=== PATIENT | male | born 1945 | race Caucasian/White ===

== ENCOUNTER 2017-11-06 09:26 | Emergency (ER) | payer OTHER ==
[~2017-11-06] VITALS: Ht 182.9 cm; Wt 104.3 kg
--- NOTE | 2017-11-06 10:17 | PHYS DOC ---
Past Medical History Past Medical History: High Cholesterol, Hypertension Past Surgical History: Other Additional Past Surgical Histo: HERNIA Additional Information: SMOKES 1 PACK CIGARS DAILY Alcohol Use: None Drug Use: None Adult General Chief Complaint Chief Complaint: SHORTNESS OF BREATH [facility] HPI Patient is a 72 year old male who presents with upper airway congestion. The patient reports she has been ill over the last week. He has sinus and nasal congestion and drainage that is running down the back of his throat. He describes that the symptom is so severe that it keeps him awake at night. His cough has been productive. He was evaluated at an urgent care several days earlier. He was placed on antibiotics but states he did not have any relief from his symptoms. Had chest pain or palpitations. The patient does use tobacco. He does not complain of shortness of breath. dyspnea. Review of Systems Review of Systems Constitutional: Denies fever or chills Eyes: Denies change in visual acuity, redness, or eye pain HENT: Denies sore throat Respiratory: Denies dyspnea Cardiovascular: No additional information not addressed in HPI GI: Denies abdominal pain : Denies dysuria Musculoskeletal: Denies back pain or joint pain Integument: Denies rash or skin lesions [] Neurologic: Denies headache, focal weakness or sensory changes [] Endocrine: Denies polyuria or polydipsia [] All other systems were reviewed and found to be within normal limits, except as documented in this note. Allergies Allergies Allergies Coded Allergies Type Severity Reaction Last Updated Verified No Known Drug Allergies 11/06/17 No Physical Exam Physical Exam Constitutional: Well developed, well nourished, no acute distress, non-toxic appearance. [] HENT: Normocephalic, atraumatic, bilateral external ears normal, oropharynx moist, no oral exudates, nose normal. [] Eyes: PERRLA, EOMI, conjunctiva normal, no discharge. [] Neck: Normal range of motion, no tenderness, supple, no stridor. [] Cardiovascular:Heart rate regular rhythm, no murmur [] Lungs & Thorax: Bilateral breath sounds clear to auscultation [] Abdomen: Bowel sounds normal, soft, no tenderness, no masses, no pulsatile masses. [] Skin: Warm, dry, no erythema, no rash. [] Back: No tenderness, no CVA tenderness. [] Extremities: No tenderness, no cyanosis, no clubbing, ROM intact, no edema. [] Neurologic: Alert and oriented X 3, normal motor function, normal sensory function, no focal deficits noted. [] Psychologic: Affect normal, judgement normal, mood normal. [] Current Patient Data Vital Signs Vital Signs Date Time Temp Pulse Resp B/P (MAP) Pulse Ox O2 Delivery O2 Flow Rate FiO2 11/06/17 13:26 52 25 170/79 (109) 93 Room Air 11/06/17 09:45 98.1 98.1 Lab Values Laboratory Tests Test 11/06/17 11:47 11/06/17 12:10 White Blood Count 14.7 x10^3/uL (4.0-11.0) H Red Blood Count 5.49 x10^6/uL (4.30-5.70) Hemoglobin 17.3 g/dL (13.0-17.5) Hematocrit 50.1 % (39.0-53.0) Mean Corpuscular Volume 91 fL (79-100) Mean Corpuscular Hemoglobin 31 pg (25-35) Mean Corpuscular Hemoglobin Concent 35 g/dL (31-37) Red Cell Distribution Width 14.4 % (11.5-14.5) Platelet Count 221 x10^3/uL (140-400) Neutrophils (%) (Auto) 60 % (31-73) Lymphocytes (%) (Auto) 27 % (24-48) Monocytes (%) (Auto) 12 % (0-9) H Eosinophils (%) (Auto) 1 % (0-3) Basophils (%) (Auto) 1 % (0-3) Neutrophils # (Auto) 8.8 x10^3uL (1.8-7.7) H Lymphocytes # (Auto) 4.0 x10^3/uL (1.0-4.8) Monocytes # (Auto) 1.7 x10^3/uL (0.0-1.1) H Eosinophils # (Auto) 0.1 x10^3/uL (0.0-0.7) Basophils # (Auto) 0.2 x10^3/uL (0.0-0.2) Sodium Level 141 mmol/L (136-145) Potassium Level 3.9 mmol/L (3.5-5.1) Chloride Level 103 mmol/L (98-107) Carbon Dioxide Level 28 mmol/L (21-32) Anion Gap 10 (6-14) Blood Urea Nitrogen 12 mg/dL (8-26) Creatinine 1.0 mg/dL (0.7-1.3) Estimated GFR (Cockcroft-Gault) 73.7 Glucose Level 94 mg/dL (70-99) Calcium Level 9.0 mg/dL (8.5-10.1) Troponin I Quantitative < 0.017 ng/mL (0.000-0.055) Laboratory Tests 11/06/17 11:47 Laboratory Tests 11/06/17 12:10 EKG EKG NSR Interpretation Time: 13:40 Radiology/Procedures Radiology/Procedures No acute findings on CXR Course & Med Decision Making Course & Med Decision Making Pertinent Labs and Imaging studies reviewed. (See chart for details) Patient was evaluated in the emergency department. His primary complaint was too much sinus and postnasal drainage which was keeping him awake at night. He did have a mildly elevated white count but no acute consolidations were seen on his x-ray. On physical exam, he did have tenderness to palpate over the sinuses. He did have visible postnasal drip. He did have an EKG in the ER which was normal. Basic labs also did not reveal acute findings. Ultimately, the patient is discharged to home. He is placed on Levaquin for 5 days. He is also placed on Mucinex D. He is advised that this may mildly increase his blood pressure. He is encouraged to use Benadryl also before bedtime to help dry out some of his secretions. Patient will follow up with his primary care doctor or return to the ER for any new or worsening symptoms. Dragon Disclaimer Dragon Disclaimer This electronic medical record was generated, in whole or in part, using a voice recognition dictation system. Departure Departure Referrals: UNKNOWN PCP NAME (PCP) Scripts Guaifenesin/Pseudoephedrne Hcl (MUCINEX D ER TABLET) 1 Each Tab.er.12h 1 TAB PO BID, #20 TAB Prov: EMILIE SANTANA DO 11/06/17 Levofloxacin (LEVAQUIN) 500 Mg Tablet 500 MG PO DAILY, #5 TAB Prov: EMILIE SANTANA DO 11/06/17 EMILIE SANTANA DO Nov 06, 2017 10:17
--- NOTE | 2017-11-06 11:12 | RAD ---
EXAM: Chest, 2 views. HISTORY: Cough. COMPARISON: None. FINDINGS: Frontal and lateral views of chest are obtained. There is no infiltrate, pleural effusion or pneumothorax. The heart is normal in size. There is hyperinflation due to inspiratory effort or emphysema. IMPRESSION: No acute pulmonary finding. Electronically signed by: Jaleesa Ovalles MD (11/06/2017 11:07 AM) [place] [id number]
[2017-11-06 11:59] LABS: BASO # 0.2 x10^3/uL (0.0-0.2); BASO % 1 % (0-3); EOS # 0.1 x10^3/uL (0.0-0.7); EOS % 1 % (0-3); HEMATOCRIT 50.1 % (39.0-53.0); HEMOGLOBIN 17.3 g/dL (13.0-17.5); LYMPH % 27 % (24-48); MEAN CORPUSCULAR HEMOGLOBIN 31 pg (25-35); MEAN CORPUSCULAR HGB CONC 35 g/dL (31-37); MEAN CORPUSCULAR VOLUME 91 fL (79-100); MONO # 1.7 x10^3/uL (0.0-1.1); MONO % 12 % (0-9); NEUT # 8.8 x10^3uL (1.8-7.7); NEUT % 60 % (31-73); PLATELET COUNT 221 x10^3/uL (140-400); RED BLOOD COUNT 5.49 x10^6/uL (4.30-5.70); RED CELL DISTRIBUTION WIDTH 14.4 % (11.5-14.5); WHITE BLOOD COUNT 14.7 x10^3/uL (4.0-11.0)
--- NOTE | 2017-11-06 12:36 | EKG ---
[facility] [address] [place] [address] Test Date: 2017-11-06 Test Time: 11:39:43 Pat Name: WALTER HOPSON Department: Room: Gender: M [employer]: : 1945 Requested By: EMILIE SANTANA Order Number: [id number] Reading MD: Pavel Cunningham MD Measurements Intervals [place] Rate: 55 P: 34 FL: 170 QRS: -44 QRSD: 102 T: 50 QT: 442 QTc: 425 Interpretive Statements SINUS RHYTHM LAD Electronically Signed On 11-06-2017 17:14:35 CDT by Pavel Cunningham MD
[2017-11-06 12:44] LABS: GFR 73.7; POTASSIUM 3.9 mmol/L (3.5-5.1)
[2017-11-06 13:26] VITALS: BP 170/79
[2017-11-06] MEDS ORDERED: GUAI-40 PO (13:52)
[2017-11-06] MEDS ORDERED: LEVO500T59 PO (13:52)
== END 2017-11-06 14:16 | disposition home or self-care (01) ==
LOC: ER 09:26
DX: R09.82 Postnasal drip (principal); R05 Cough; J39.2 Other diseases of pharynx; E78.00 Pure hypercholesterolemia, unspecified; I10 Essential (primary) hypertension; F17.210 Nicotine dependence, cigarettes, uncomplicated
CPT/HCPCS: 36415; 71046; 80048; 84484; 85025; 93005; 99285-25